=== PATIENT | female | born 1985 | race Caucasian/White ===

== ENCOUNTER 2016-11-02 16:45 | Emergency (ER) | payer OTHER ==
--- NOTE | 2016-11-02 17:26 | RAD ---
INDICATION: Chest pain COMPARISON: None TECHNIQUE: PA and lateral dual-energy views were obtained. FINDINGS: Bones/Soft Tissues: There are no acute bony findings. Cardiomediastinal: The cardiomediastinal silhouette is normal. Lungs: There is a small interstitial infiltrate in the left base. There may be a small right basal infiltrate Pleura: There are no pleural effusions. Other: None IMPRESSION: SUSPECT SMALL BIBASILAR INFILTRATES LEFT GREATER THAN RIGHT
--- NOTE | 2016-11-02 18:08 | ED ---
HPI Cardiac - HPI Summary HPI Summary: Pt presents w/ Lt sided chest/rib wall pain w/ deep breath prior to arrival. Was doing laundry, took a deep breath and had pain along Lt chest/ribs. This pain continued when she got here with movements - was difficult to move around while seated (rotation, pushing herself up with her arms, lifting her purse, etc.) She reports after being here for 45 minutes, her pain as resolved without intervention. She is recovering from "walking pneumonia" dx'd by PCP > 1 week ago. She's been taking doxycycline and completed the course today. 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 Has not had fevers for the past three days. Does report her typical spring allergies starting and she takes an anti-histamine for this w/ good relief. Denies persistent sinus pain/pressure/congstion, PND, ST, otalgia, difficulty breathing or SOB. Her cough was productive w/ thick colored phlegm at onset of pneumonia but is now clear. She continues to smoke. Has asthma as well - does not feel like she needs an albuterol inhaler for home use nor a nebulizer tx here today. No h/o recent injury, PE, pnuemothorax. She did not have a CXR upon initial evaluation w/ PCP. - History of Current Complaint Hx Obtained From: Patient, Family/Moveman - partner Pain Intensity: 3 <Cindy Traylor - Last Filed: 11/02/16 18:32> <Hanna Casanova - Last Filed: 11/02/16 22:46> - History of Current Complaint Chief Complaint: EDChestWallPain Stated Complaint: RIB PAIN WITH DEEP BREATH Time Seen by Provider: 11/02/16 17:42 - Allergy/Home Medications Allergies/Adverse Reactions: Allergies Allergy/AdvReac Type Severity Reaction Status Date / Time Erythromycin Allergy Rash Verified 02/14/16 13:14 Penicillins [PCN] Allergy Rash Verified 02/14/16 13:14 PMH/Surg Hx/FS Hx/Imm Hx Previously Healthy: No - just finished anbx for pneumonia Endocrine/Hematology History: Denies: Hx Anticoagulant Therapy, Hx Blood Disorders, Hx Coagulopothy Cardiovascular History: Denies: Hx Congenital Heart Disease, Hx Congestive Heart Failure, Hx Hypertension, Hx Myocardial Infarction, Hx Rheumatic Fever, Hx Valvular Heart Disease Respiratory History: Reports: Hx Asthma - well controlled w/o tx, Hx Pneumonia, Hx Seasonal Allergies - controlled w/ antihistamine Denies: Hx Pulmonary Embolism Infectious Disease History: No Infectious Disease History: Denies: Hx of Known/Suspected MRSA, Traveled Outside the [place] in Last 30 Days - Family History Known Family History: Positive: Hypertension, Diabetes - Social History Occupation: Employed Full-time Lives: With Family Alcohol Use: None Hx Substance Use: No Substance Use Type: Reports: None Smoking Status (MU): Current Every Day Smoker Type: Cigarettes Have You Smoked in the Last Year: Yes <Cindy Traylor - Last Filed: 11/02/16 18:32> Review of Systems Constitutional: Negative - see HPI Negative: Sore Throat, Ear Ache, Nasal Discharge Cardiovascular: Other - see HPI Respiratory: Other - see HPI Negative: Abdominal Pain, Vomiting, Diarrhea, Nausea Positive: no symptoms reported Musculoskeletal: Other - SEE hpi Skin: Negative Negative: Rash, Bruising Neurological: Negative Negative: Headache, Weakness, Paresthesia, Numbness, Syncope, Slurred Speech Psychological: Normal All Other Systems Reviewed And Are Negative: Yes <Cindy Traylor - Last Filed: 11/02/16 18:32> Cardiovascular: Other Respiratory: Other Musculoskeletal: Other <Hanna Casanova - Last Filed: 11/02/16 22:46> Physical Exam Triage Information Reviewed: Yes Vital Signs On Initial Exam: Initial Vitals Temp Pulse Resp BP Pulse Ox 98.4 F 62 16 134/88 100 11/02/16 16:47 11/02/16 16:47 11/02/16 16:47 11/02/16 16:47 11/02/16 16:47 Vital Signs Reviewed: Yes Appearance: Positive: Well-Appearing, No Pain Distress, Well-Nourished Skin: Positive: Warm, Dry Head/Face: Positive: Normal Head/Face Inspection - sinuses NTTP Eyes: Positive: Normal, EOMI, Conjunctiva Clear. Negative: Conjunctiva Inflammed, Discharge ENT: Positive: Hearing grossly normal, Pharynx normal, Nasal congestion - mild, TMs normal. Negative: Pharyngeal erythema, Nasal drainage, Tonsillar swelling, Tonsillar exudate Neck: Positive: Supple, Nontender, No Lymphadenopathy Respiratory/Lung Sounds: Positive: Clear to Auscultation, Breath Sounds Present. Negative: Rales, Rhonchi, Wheezes Cardiovascular: Positive: Normal, RRR, Pulses are Symmetrical in both Upper and Lower Extremities, S1, S2. Negative: Murmur, Rub, Leg Edema Left, Leg Edema Right Abdomen Description: Positive: Nontender, Soft Bowel Sounds: Positive: Present Musculoskeletal: Positive: Normal, Strength/ROM Intact Neurological: Positive: Normal, Sensory/Motor Intact, Alert, Oriented to Person Place, Time, CN Intact II-III Psychiatric: Positive: Normal - Abby Coma Scale Coma Scale Total: 15 <Cindy Traylor - Last Filed: 11/02/16 18:32> Vital Signs On Initial Exam: Initial Vitals Temp Pulse Resp BP Pulse Ox 98.4 F 62 16 134/88 100 11/02/16 16:47 11/02/16 16:47 11/02/16 16:47 11/02/16 16:47 11/02/16 16:47 <Hanna Casanova - Last Filed: 11/02/16 22:46> Diagnostics - Vital Signs Vital Signs Temp Pulse Resp BP Pulse Ox 11/02/16 17:29 18 11/02/16 17:22 98.4 F 62 16 134/88 100 11/02/16 16:47 98.4 F 62 16 134/88 100 <Cindy Traylor - Last Filed: 11/02/16 18:32> - Vital Signs Vital Signs Temp Pulse Resp BP Pulse Ox 11/02/16 18:48 98.3 F 84 16 111/76 11/02/16 17:29 18 11/02/16 17:22 98.4 F 62 16 134/88 100 11/02/16 16:47 98.4 F 62 16 134/88 100 <Brooksoma Mary - Last Filed: 11/02/16 22:46> Disposition - Course Course Of Treatment: Pt presents w/ Lt sided rib/chest wall pain w/ deep breath earlier today. She has been sick w/ pneumonia over the past week+ but feeling better since taking doxycycline. She reports Lt sided pain has resolved since being here. CXR reveals B/L pneumonia but she's breathing well, pulse ox 100%, chest CTA and overall feeling better. An ECG was checked to r/o pericarditis which can be an adverseeffect of doxycycline however this appears normal aside from mild bradycardia (asx). Pt d/c'd and advised to try heat, mucinex, fluids and ibuprofen w/ food for pain. Return to ED if danger s/sx present. Pt agrees w / plan. <Cindy Traylor - Last Filed: 11/02/16 18:32> <Hanna Casanova - Last Filed: 11/02/16 22:46> - Diagnoses Provider Diagnoses: Left-sided chest wall pain, Pneumonia Discharge <Cindy Traylor - Last Filed: 11/02/16 18:32> <Hanna Casanova - Last Filed: 11/02/16 22:46> - Discharge Plan Condition: Stable Disposition: HOME Patient Education Materials: Chest Wall Pain (ED), Pneumonia (ED) Referrals: Giovanny Cottrell MD [Primary Care Provider] - Additional Instructions: Your pneumonia appears to be improving however you may have chest wall pain from muscle strain/fatigue from recent coughing. You may try heat pack with ibuprofen (take w/ food) and gentle stretches to alleviate pain. Also taking mucinex with lots of water will help thin phlegm to make productive cough move easier. Follow-up with PCP as directed. *If you develop shortness of breath, difficulty breathing, chest pain, bloody cough, fever, fatigue, return to ED
[2016-11-02 18:50] VITALS: BP 111/76
== END 2016-11-02 18:48 | disposition home or self-care (01) ==
LOC: ED 16:45
DX: J18.9 Pneumonia, unspecified organism (principal); R00.1 Bradycardia, unspecified; J45.909 Unspecified asthma, uncomplicated; Z88.1 Allergy status to other antibiotic agents; Z88.0 Allergy status to penicillin
CPT/HCPCS: 71020; 93005; 99281

== ENCOUNTER 2017-11-06 11:18 | Emergency (ER) | payer OTHER ==
[2017-11-06 12:35] VITALS: BP 137/90
--- NOTE | 2017-11-06 12:51 | ED ---
Back Pain - HPI Summary HPI Summary: Patient is an otherwise healthy 32-year-old female with a history of sciatica and low back pain which has been intermittent 9 years, presents to the ED with chief complaint of low back pain and spasms with radiation into the bilateral glutes and posterior legs. Denies any bladder or bowel dysfunction. Denies any worsening pain with twisting about the hips, flexion or extension at the hips. She states the pain is intermittent, worse with standing, better with sitting. Pain is been present 5 days. Moist heat and [id number] patches with a mild amount of relief. She has taken 200 mg ibuprofen this morning without relief. - History of Current Complaint Chief Complaint: EDBackInjuryPain Stated Complaint: BACK PAIN Time Seen by Provider: 11/06/17 11:31 Hx Obtained From: Patient Onset/Duration: Sudden Onset Onset/Duration: Started Hours Ago Timing: Constant Back Pain Location: Is Discrete @ - low back pain Pain Intensity: 6 Pain Scale Used: 0-10 Numeric Character: Aching Aggravating Symptom(s): Movement, Lifting, Bending Alleviating Symptom(s): Rest, Position Associated Signs And Symptoms: Positive: Pain with Weight Bearing. Negative: Swelling, Bruising, Numbness, Tingling, Flank Pain, Bowel Incontinence, Weight Loss - Risk Factors AAA Risk Factors: Negative TAD Risk Factors: Negative Cauda Equina Risk Factors: Negative Epidural Abscess Risk Factors: Negative - Allergies/Home Medications Allergies/Adverse Reactions: Allergies Allergy/AdvReac Type Severity Reaction Status Date / Time erythromycin base Allergy Rash Verified 11/06/17 11:24 Penicillins Allergy Rash Verified 11/06/17 11:24 Home Medications: Home Medications Loratadine 10 mg PO DAILY 11/06/17 [History Confirmed 11/06/17] Medroxyprogesterone Acetate 150 mg IM MONTHLY 11/06/17 [History Confirmed ] PMH/Surg Hx/FS Hx/Imm Hx Previously Healthy: Yes Endocrine/Hematology History: Denies: Hx Anticoagulant Therapy, Hx Blood Disorders Cardiovascular History: Denies: Hx Congenital Heart Disease, Hx Congestive Heart Failure, Hx Hypertension, Hx Myocardial Infarction, Hx Rheumatic Fever, Hx Valvular Heart Disease Respiratory History: Reports: Hx Asthma - well controlled w/o tx, Hx Pneumonia, Hx Seasonal Allergies - controlled w/ antihistamine Denies: Hx Pulmonary Embolism - Immunization History Hx Pertussis Vaccination: No Immunizations Up to Date: Unable to Obtain/Confirm Infectious Disease History: No Infectious Disease History: Denies: Hx of Known/Suspected MRSA, Traveled Outside the [place] in Last 30 Days - Family History Known Family History: Positive: Hypertension, Diabetes - Social History Occupation: Unemployed Lives: With Family Alcohol Use: None Hx Substance Use: No Substance Use Type: Reports: None Smoking Status (MU): Current Every Day Smoker Type: Cigarettes Have You Smoked in the Last Year: Yes Review of Systems Constitutional: Negative Negative: Fever, Chills, Fatigue Negative: Palpitations, Chest Pain Negative: Shortness Of Breath, Cough Genitourinary: Negative Positive: no symptoms reported, see HPI Positive: Arthralgia. Negative: Myalgia Negative: Bruising Negative: Headache, Weakness, Paresthesia, Numbness, Syncope, Slurred Speech Psychological: Normal All Other Systems Reviewed And Are Negative: Yes Physical Exam Triage Information Reviewed: Yes Vital Signs On Initial Exam: Initial Vitals Temp Pulse Resp BP Pulse Ox 98.7 F 100 14 111/68 96 11/06/17 11:26 11/06/17 11:26 11/06/17 11:26 11/06/17 11:26 11/06/17 11:26 Vital Signs Reviewed: Yes Appearance: Positive: Well-Appearing, Well-Nourished Skin: Positive: Warm, Skin Color Reflects Adequate Perfusion Head/Face: Positive: Normal Head/Face Inspection Eyes: Positive: EOMI, DENISSE, Conjunctiva Clear Neck: Positive: Supple, No Lymphadenopathy Respiratory/Lung Sounds: Positive: Clear to Auscultation, Breath Sounds Present Cardiovascular: Positive: RRR, Pulses are Symmetrical in both Upper and Lower Extremities Musculoskeletal: Positive: Normal, Strength/ROM Intact Neurological: Positive: Sensory/Motor Intact, Alert, Oriented to Person Place, Time, Speech Normal Psychiatric: Positive: Normal, Affect/Mood Appropriate AVPU Assessment: Alert Diagnostics - Vital Signs Vital Signs Temp Pulse Resp BP Pulse Ox 11/06/17 12:33 98.2 F 78 12 137/90 100 11/06/17 11:26 98.7 F 100 14 111/68 96 - Laboratory Lab Statement: Any lab studies that have been ordered have been reviewed, and results considered in the medical decision making process. Back Pain Course/Dx - Course Course Of Treatment: During the course of treatment, the patient is evaluated for low back pain and sciatica 4 days. She has been using [id number] patches with a mild amount of relief. She has a history of such and states this feels similar to her previous episodes. She has never tried a muscle relaxer a steroid. She took 200 mg ibuprofen this morning without relief. I' ve discussed with the patient treatment options. I have advised to defer at this time for a CT scan as she does not have any pinpoint tenderness to the posterior spine. The back pain appears to be more spasmodic. We'll try Flexeril and a steroid and she is given return precautions as well as low back exercises. She will follow back up with her PCP for any worsening or changing symptoms. She understands for any bladder or bowel dysfunction she will return to the ED. - Diagnoses Differential Diagnosis/HQI/PQRI: Positive: Herniated Disc, Strain, Sprain Provider Diagnoses: Muscle spasm Discharge - Sign-Out/Discharge Documenting (check all that apply): Discharge - Discharge Plan Condition: Stable Disposition: HOME Prescriptions: Cyclobenzaprine TAB* [Flexeril TAB*] 10 mg PO BID PRN #14 tab MDD 2 PRN Reason: Spasms predniSONE TAB* [Deltasone TAB*] 50 mg PO DAILY #5 tab Patient Education Materials: Sciatica (ED), Lumbar Radiculopathy (ED), Lower Back Exercises (ED) Referrals: Giovanny Cottrell MD [Primary Care Provider] - Additional Instructions: Please return to the ED for any worsening or changing symptoms As discussed, the muscle spasms and pain should subside within a week or so Gently stretch the lower back Moist heat to the area as much as possible Ibuprofen 600 mg 3 times daily Prednisone 50 mg once daily 5 days Flexeril twice daily as needed for muscle spasms You may use any patches, [id number], but do not use with heat simultaneously If he develop any bladder or bowel dysfunction, return to the ED immediately - Billing Disposition and Condition Condition: STABLE Disposition: HOME
== END 2017-11-06 12:35 | disposition home or self-care (01) ==
LOC: ED 11:18
DX: M62.830 Muscle spasm of back (principal); M54.5 Low back pain; J45.909 Unspecified asthma, uncomplicated; F17.210 Nicotine dependence, cigarettes, uncomplicated
CPT/HCPCS: 99281

== ENCOUNTER 2019-03-06 11:14 | Emergency (ER) | payer OTHER ==
[2019-03-06 12:01] LABS: Rapid Strep Molecular POSITIVE (Negative)
--- NOTE | 2019-03-06 12:27 | ED ---
Throat Pain/Nasal Congestion - HPI Summary HPI Summary: Patient is a 33-year-old female who presents emergency department for a sore throat and fever 2-3 days. No significant past medical history. Patient denies abdominal pain, vomiting, diarrhea, urinary symptoms. Symptoms are mild in severity. Patient states she believes she had a tonsillectomy. Pain is worse with swallowing. Nothing improves pain. Able to swallow solids and liquids. - History of Current Complaint Chief Complaint: EDThroatPain Time Seen by Provider: 03/06/19 11:34 Hx Obtained From: Patient - Allergies/Home Medications Allergies/Adverse Reactions: Allergies Allergy/AdvReac Type Severity Reaction Status Date / Time erythromycin base Allergy Rash Verified 11/06/17 11:24 Penicillins Allergy Rash Verified 11/06/17 11:24 PMH/Surg Hx/FS Hx/Imm Hx Previously Healthy: Yes Endocrine/Hematology History: Denies: Hx Anticoagulant Therapy, Hx Blood Disorders Cardiovascular History: Denies: Hx Congenital Heart Disease, Hx Congestive Heart Failure, Hx Hypertension, Hx Myocardial Infarction, Hx Rheumatic Fever, Hx Valvular Heart Disease Respiratory History: Reports: Hx Asthma - well controlled w/o tx, Hx Pneumonia, Hx Seasonal Allergies - controlled w/ antihistamine Denies: Hx Pulmonary Embolism Infectious Disease History: No Infectious Disease History: Denies: Hx of Known/Suspected MRSA, Traveled Outside the [place] in Last 30 Days - Family History Known Family History: Positive: Hypertension, Diabetes, Non-Contributory - Social History Occupation: Unemployed Lives: With Family Alcohol Use: None Hx Substance Use: No Substance Use Type: Reports: None Smoking Status (MU): Current Every Day Smoker Type: Cigarettes Have You Smoked in the Last Year: Yes Review of Systems Positive: Fever, Chills Positive: Sore Throat, Ear Ache Cardiovascular: Negative Respiratory: Negative Gastrointestinal: Negative Genitourinary: Negative Skin: Negative Neurological: Negative All Other Systems Reviewed And Are Negative: Yes Physical Exam Triage Information Reviewed: Yes Vital Signs On Initial Exam: Initial Vitals Temp Pulse Resp BP Pulse Ox 99.9 F 88 18 131/80 98 03/06/19 11:16 03/06/19 11:16 03/06/19 11:16 03/06/19 11:16 03/06/19 11:16 Vital Signs Reviewed: Yes Appearance: Positive: Well-Appearing - Pt. sitting in chair. Appears to feel unwell but nontoxic. Skin: Positive: Warm, Dry Head/Face: Positive: Normal Head/Face Inspection Eyes: Positive: Normal, EOMI, DENISSE ENT: Positive: Other - Erythema and edema to posterior pharynx with white plagues. Uvula midline without edema or deviation. No muffled voice or trismus. Neck: Positive: Supple, Enlarged Nodes @ - bilateral anterior cervical. Respiratory/Lung Sounds: Positive: Clear to Auscultation, Breath Sounds Present. Negative: Rales, Rhonchi, Wheezes Cardiovascular: Positive: Normal, RRR Neurological: Positive: Normal, CN Intact II-III Psychiatric: Positive: Affect/Mood Appropriate Diagnostics - Vital Signs Vital Signs Temp Pulse Resp BP Pulse Ox 03/06/19 11:16 99.9 F 88 18 131/80 98 - Laboratory Lab Results: Lab Results 03/06/19 Range/Units 11:50 Group A Strep Rapid Positive A (Negative) Lab Statement: Any lab studies that have been ordered have been reviewed, and results considered in the medical decision making process. EENT Course/Dx - Course Course Of Treatment: Positive strep. No signs of abscess. Pt. allergic to pnc ( rash). Will treat with keflex. Tylenol or motrin for pain as directed. increase fluids and rest. Will f.u with pcp in 2-3 days and return to ER if sxs change or worsen. pt. understands and agree with plan. - Differential Diagnoses Differential Diagnoses: Pharyngitis, Tonsilitis - Diagnoses Provider Diagnoses: Strep pharyngitis Discharge - Sign-Out/Discharge Documenting (check all that apply): Patient Departure Patient Received Moderate/Deep Sedation with Procedure: No - Discharge Plan Condition: Good Disposition: HOME Prescriptions: Cefdinir cap* [Cefdinir 300 MG cap (NF)] 300 mg PO BID #20 cap Patient Education Materials: Strep Throat (ED) Referrals: Giovanny Cottrell MD [Primary Care Provider] - Additional Instructions: Follow up with PCP within one week Take antibiotic as directed Continue Tylenol and Motrin for pain and fever as directed Increase fluids and rest Return to ER if symptoms change or worsen - Billing Disposition and Condition Condition: GOOD Disposition: Home
[2019-03-06 12:30] VITALS: BP 125/73
== END 2019-03-06 12:29 | disposition home or self-care (01) ==
LOC: ED 11:14
DX: J02.0 Streptococcal pharyngitis (principal); J45.909 Unspecified asthma, uncomplicated; F17.210 Nicotine dependence, cigarettes, uncomplicated; Z88.1 Allergy status to other antibiotic agents; Z88.0 Allergy status to penicillin
CPT/HCPCS: 87651; 99282

== ENCOUNTER 2019-04-18 08:54 | Emergency (ER) | payer OTHER ==
--- NOTE | 2019-04-18 09:19 | ED ---
Back Pain - HPI Summary HPI Summary: This patient is a 33-year-old otherwise healthy female who presents to the ED with "pain from the waist up." She states she was recently treated for sciatica and given a 5 day course of steroids. She states she completed the steroids yesterday and this morning she was to start taking her meloxicam. Upon awakening this morning, she did not take her steroid and started to have diffuse upper body pain. Symptoms are worse to the upper bilateral shoulder blades and chest wall as well as to the neck. She denies any joint pains, aches or stiffness. She denies any limitations with range of motion. Denies any recent tick bites, rashes, fevers, sweats, chills. Patient has been able to eat and drink okay. Denies any other weakness or fatigue. She has never had anything like this in the past. Patient has a history of smoking, denies alcohol or drug history. - History of Current Complaint Chief Complaint: EDBackInjuryPain Stated Complaint: PAIN FROM WAIST DOWN PER PT Time Seen by Provider: 04/18/19 08:58 Hx Obtained From: Patient Onset/Duration: Sudden Onset Onset/Duration: Started Hours Ago Timing: Constant Back Pain Location: Is Diffuse - upper back and chest wall Severity Initially: Mild Severity Currently: Mild Pain Intensity: 0 Pain Scale Used: 0-10 Numeric Character: Aching Aggravating Symptom(s): Movement, Lifting, Bending, Other - palpation Alleviating Symptom(s): Rest, Position Associated Signs And Symptoms: Negative: Swelling, Redness, Bruising, Weakness, Numbness, Bladder Incontinence, Bowel Incontinence - Risk Factors AAA Risk Factors: Negative TAD Risk Factors: Negative Cauda Equina Risk Factors: Negative - Allergies/Home Medications Allergies/Adverse Reactions: Allergies Allergy/AdvReac Type Severity Reaction Status Date / Time erythromycin base Allergy Rash Verified 11/06/17 11:24 Penicillins Allergy Rash Verified 11/06/17 11:24 Home Medications: Home Medications Meloxicam [Mobic] 15 mg PO DAILY 04/18/19 [History Confirmed 04/18/19] tiZANidine TAB* [Zanaflex TAB*] 2 mg PO SEE INSTRUCTIONS PRN 04/18/19 [History Confirmed 04/18/19] PMH/Surg Hx/FS Hx/Imm Hx Previously Healthy: Yes Endocrine/Hematology History: Denies: Hx Anticoagulant Therapy, Hx Blood Disorders Cardiovascular History: Denies: Hx Congenital Heart Disease, Hx Congestive Heart Failure, Hx Hypertension, Hx Myocardial Infarction, Hx Rheumatic Fever, Hx Valvular Heart Disease Respiratory History: Reports: Hx Asthma - well controlled w/o tx, Hx Pneumonia, Hx Seasonal Allergies - controlled w/ antihistamine Denies: Hx Pulmonary Embolism - Immunization History Hx Pertussis Vaccination: No Immunizations Up to Date: Yes Infectious Disease History: No Infectious Disease History: Denies: Hx of Known/Suspected MRSA, Traveled Outside the [place] in Last 30 Days - Family History Known Family History: Positive: Hypertension, Diabetes, Non-Contributory - Social History Occupation: Employed Full-time Lives: With Family Alcohol Use: None Hx Substance Use: No Substance Use Type: Reports: None Smoking Status (MU): Light Every Day Tobacco Smoker Type: Cigarettes Have You Smoked in the Last Year: Yes Review of Systems Negative: Fever, Chills, Fatigue, Skin Diaphoresis Negative: Diplopia Negative: Dental Pain, Sore Throat Negative: Palpitations, Chest Pain Negative: Shortness Of Breath, Cough Genitourinary: Negative Positive: no symptoms reported, see HPI Positive: Myalgia - diffuse upper chest wall and back Negative: Rash, Bruising Neurological: Negative All Other Systems Reviewed And Are Negative: Yes Physical Exam Triage Information Reviewed: Yes Vital Signs On Initial Exam: Initial Vitals Temp Pulse Resp BP Pulse Ox 99.2 F 69 17 135/83 100 04/18/19 08:56 04/18/19 08:56 04/18/19 08:56 04/18/19 08:56 04/18/19 08:56 Appearance: Positive: Well-Appearing, No Pain Distress, Well-Nourished Skin: Positive: Warm, Skin Color Reflects Adequate Perfusion Head/Face: Positive: Normal Head/Face Inspection Eyes: Positive: EOMI, DENISSE, Conjunctiva Clear Neck: Positive: Supple, Nontender, No Lymphadenopathy Respiratory/Lung Sounds: Positive: Clear to Auscultation, Breath Sounds Present - This is Cardiovascular: Positive: RRR, Pulses are Symmetrical in both Upper and Lower Extremities Abdomen Description: Positive: Nontender Musculoskeletal: Positive: Normal, Strength/ROM Intact Neurological: Positive: Sensory/Motor Intact, Alert, Oriented to Person Place, Time, Speech Normal Psychiatric: Positive: Affect/Mood Appropriate Procedures - Sedation Patient Received Moderate/Deep Sedation with Procedure: No Diagnostics - Vital Signs Vital Signs Temp Pulse Resp BP Pulse Ox 04/18/19 08:56 99.2 F 69 17 135/83 100 - Laboratory Lab Statement: Any lab studies that have been ordered have been reviewed, and results considered in the medical decision making process. Back Pain Course/Dx - Course Course Of Treatment: On physical examination, patient is evaluated for diffuse pain from the waist up. Patient states she awoke with diffuse pain. This is rated as 2/10. Painful to touch. Denies any rashes, trauma, tic bites, fevers , sweats, chills. Patient denies any limitations with range of motion. She states she's never had anything like this before. She was diagnosed recently with sciatica, however this has improved. She recently stopped taking her prednisone yesterday. She did not take this medication this morning as she typically does, she may be having a prednisone rebound effect of body aches and fatigue in which these are her symptoms this morning. No physical findings other than diffuse pain to the chest wall and upper back. Patient remains afebrile and other vital signs are stable. She is given a further tapering dose of prednisone to aid with possible WD symptoms, however also discussed this may be a virus. She will f/u with primary as needed. - Diagnoses Provider Diagnoses: Pain, Adverse effect of prednisone Discharge ED - Sign-Out/Discharge Documenting (check all that apply): Patient Departure Patient Received Moderate/Deep Sedation with Procedure: No - Discharge Plan Condition: Stable Disposition: HOME Prescriptions: predniSONE [Deltasone 20 MG TAB] 20 mg PO DAILY #4 tablet Referrals: Giovanny Cottrell MD [Primary Care Provider] - Additional Instructions: Continue to take your meloxicam as scheduled Prednisone once daily x 4 days - start this today Tylenol three times daily 650mg DO NOT TAKE NSAIDS WHILE TAKING MELOXICAM IF SYMPTOMS CONTINUE - PLEASE FOLLOW UP WITH PCP - Billing Disposition and Condition Condition: STABLE Disposition: Home
[2019-04-18 09:22] VITALS: BP 0/0
== END 2019-04-18 09:20 | disposition home or self-care (01) ==
LOC: ED 08:54
DX: T38.0X5A Adverse effect of glucocorticoids and synthetic analogues, initial encounter (principal); R52 Pain, unspecified; Y92.9 Unspecified place or not applicable
CPT/HCPCS: 99282